=== PATIENT | female | born 1970 | race Two or more races ===

== ENCOUNTER 2024-09-26 06:50 | Inpatient (IN) | payer OTHER ==
[2024-09-15 12:41] VITALS: BP 103/75
[~2024-09-26] VITALS: Ht 170.2 cm; Wt 81.6 kg
[2024-09-26] MEDS ORDERED: DEXAMETHASONE SODIUM PHOSPHATE 4 MG/ML VIAL IV ONE (13:15)
[2024-09-26] MEDS ORDERED: MEPERIDINE HCL 25 MG/ML AMPUL IV ONE (15:00)
[2024-09-26] MEDS ORDERED: ENALAPRILAT DIHYDRATE 1.25 MG/ML VIAL IV PRN (15:30)
[2024-09-26] MEDS ORDERED: ONDANSETRON HCL 2 MG/ML VIAL IV PRN (15:30)
[2024-09-26] MEDS ORDERED: ACETAMINOPHEN 500 MG GEL..CAP PO SCH (17:00)
[2024-09-26] MEDS ORDERED: CYCLOBENZAPRINE HCL 5 MG TABLET PO SCH (17:00)
[2024-09-26] MEDS ORDERED: TRAMADOL HCL 50 MG TABLET PO SCH (17:00)
[2024-09-26 19:00] VITALS: BP 104/69; O2SAT 95
[2024-09-26] MEDS ORDERED: PANTOPRAZOLE SODIUM 40 MG/VIAL VIAL IV PUSH SCH (21:00)
[2024-09-27 00:29] VITALS: BP 102/69; O2SAT 95
[2024-09-27 08:00] VITALS: BP 96/67; O2SAT 96
== END 2024-09-27 17:55 | disposition home or self-care (01) | DRG 627 ==
LOC: CIR.AMB 06:50 → SURH 15:39 → O/R 15:39 → SURH 15:41
PROVIDERS: ADMIT Surgery; ATTEND Surgery
PROC: 0GBN0ZZ Excision of Right Inferior Parathyroid Gland, Open Approach (ICD-10-PCS; principal; 2024-09-26 09:15)
DX: D35.1 Benign neoplasm of parathyroid gland (principal); Z20.822 Contact with and (suspected) exposure to COVID-19